=== PATIENT | female | born 1955 | race Caucasian/White ===

== ENCOUNTER 2022-02-03 18:18 | Emergency (ER) | payer MEDICARE ==
--- NOTE | 2022-02-03 18:49 | ERPHSYRPT ---
- History of Present Illness Time Seen by Provider: 02/03/22 18:46 Source: patient Exam Limitations: no limitations Patient Subjective Stated Complaint: pt here for a fall yesterday while stacking wood, co pain to right wrist and lower arm. denies any other injury Triage Nursing Assessment: pt alert, resp easy, face mask in place, skin w/d/p. has swelling to right wrist, limited range of motion, strong radial pulse Physician History: pt has persisting swelling and pain right dorsal wrist after falling holding log yesterday. No LOC, No dizziness, No Cp or SOBreath, just tripped. did not hit head or other extremities per pt. full ROM all other ext. some pain with ext right wrist and palpation. negative snuff box tenderness. NV intact. Chest clear and nontender. Ht reg - No Hx blood thinners. Abd soft and nontender. Spine nontender throughout with full ROM; Neruo all normal. Occurred: yesterday Method of Injury: direct blow, fell Quality: constant, sharpness, throbbing Severity of Pain-Max: moderate Severity of Pain-Current: moderate Extremities Pain Location: wrist: right Modifying Factors: Improves With: cold therapy, movement Associated Symptoms: none, No back pain, No chest pain, No dyspnea, No jaw pain, No neck pain, No short of breath Allergies/Adverse Reactions: No Known Drug Allergies Allergy (Unverified 02/03/22 18:44) Home Medications: Buspirone HCl 1 ea DAILY 02/03/22 [History] Hydrocodone/Acetaminophen [Hydrocodone-Acetamin 5-325 mg] 1 ea DAILY 02/03/22 [History] Losartan Potassium [Cozaar] 1 ea DAILY 02/03/22 [History] Meloxicam 1 ea DAILY 02/03/22 [History] Hx Influenza Vaccination/Date Given: No Hx Pneumococcal Vaccination/Date Given: No Immunizations Up to Date: Yes Travel Risk - International Travel Have you traveled outside of the country in past 3 weeks: No - Coronavirus Screening Are you exhibiting any of the following symptoms?: No Close contact with a COVID-19 positive Pt in past 14-21 Days: No - Vaccine Status Have you recieved a Covid-19 vaccination: Yes 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 - Review of Systems Constitutional: No Fever, No Chills Eyes: No Symptoms Ears, Nose, & Throat: No Symptoms Respiratory: No Cough, No Dyspnea Cardiac: No Chest Pain, No Edema, No Syncope Abdominal/Gastrointestinal: No Abdominal Pain, No Nausea, No Vomiting, No Diarrhea Genitourinary Symptoms: No Dysuria Musculoskeletal: Fall, Injury, Joint Pain, Joint Swelling, No Back Pain, No Neck Pain Skin: No Symptoms, No Rash, No Skin Lesions Neurological: No Symptoms, No Dizziness, No Focal Weakness, No Headache, No Sensory Changes, No Vertigo Psychological: No Symptoms Endocrine: No Symptoms Hematologic/Lymphatic: No Symptoms Immunological/Allergic: No Symptoms All Other Systems: Reviewed and Negative - Past Medical History Pertinent Past Medical History: Yes Cardiac History: Hypertension Respiratory History: COPD Musculoskeletal History: Arthritis Female Reproductive Disorders: Breast Cancer Other Medical History: hx of breast cancer - Past Surgical History Past Surgical History: Yes Other Surgical History: lypmh nodes removed, - Social History Smoking Status: Current every day smoker Exposure to second hand smoke: Yes Drug Use: none Patient Lives Alone: Yes - Nursing Vital Signs Nursing Vital Signs: Initial Vital Signs Temperature 97.2 F 02/03/22 18:36 Pulse Rate 80 02/03/22 18:36 Respiratory Rate 16 02/03/22 18:36 Blood Pressure 149/74 02/03/22 18:36 O2 Sat by Pulse Oximetry 95 02/03/22 18:36 Pain Scale Pain Intensity 4 - Physical Exam General Appearance: alert Eyes, Ears, Nose, Throat Exam: moist mucous membranes Neck Exam: non-tender, supple Cardiovascular/Respiratory Exam: chest non-tender, normal breath sounds, regular rate/rhythm, no respiratory distress Abdominal Exam: non-tender, No guarding Back Exam: normal inspection, No vertebral tenderness Shoulder Exam: normal inspection, non-tender, no evidence of injury, normal ROM Elbow/Forearm Exam: normal inspection, non-tender, no evidence of injury, normal ROM Wrist Exam: bone tenderness, limited ROM, pain, soft tissue tenderness, swelling Hand Exam: normal inspection, non-tender, no evidence of injury, normal ROM DTR - Upper Extremity Exam: bicep (R): 2+, bicep (L): 2+, tricep (R): 2+, tricep (L): 2+ Neuro/Tendon Exam: normal sensation, normal motor functions, normal tendon functions Mental Status Exam: alert, oriented x 3, cooperative Skin Exam: normal color, warm, dry SpO2 Interpretation: normal SpO2: 95 O2 Delivery: Room Air Procedures - Splinting Location of Splint: Right, Wrist Type of Splint: Velcro Splint Splint Applied By: ED Nurse Pre-Proc Neuro Vasc Exam: normal Post-Proc Neuro Vasc Exam: neurovascular intact, unchanged from pre-exam - Course Nursing assessment & vital signs reviewed: Yes - Radiology Exams Right Wrist X-ray Interpretation: Reviewed by me, Other (lucency right scahphoid nondisplaced. ) Ordered Tests: Active Orders 24 hr Category Date Time Status FOREARM Stat Exams 02/03/22 18:56 Completed - Progress Progress: improved, re-examined Counseled pt/family regarding: diagnosis, need for follow-up, rad results - Departure Departure Disposition: Home Clinical Impression: lucency right wrist scaphoid/occult Fx Condition: Good Critical Care Time: No Referrals: CLINTON VENTURA NP [Primary Care Provider] - Follow up/PCP as directed Instructions: Preventing Falls, Wrist Fracture (DC), Common Wrist Injuries (DC) Additional Instructions: see Ortho [facility] Saturday ( call [facility]) . use spline and return meantime if any numbness or other symptoms of concern. Use Ice and elevation. Final x-ray report Saturday from radiologist. Use tylenol or Alleve for pain.
[2022-02-03 20:11] VITALS: BP 117/66
--- NOTE | 2022-02-03 20:15 | XRAY ---
Indication: Pain following fall. Comparison: None 2 view right forearm demonstrate mild osteopenia and moderate/advanced 1st metacarpal multangular scaphoid degenerative changes. No other bony, articular, or soft tissue abnormalities.
[2022-02-03 21:09] VITALS: PULSE 74; O2SAT 94
== END 2022-02-03 21:09 | disposition home or self-care (01) ==
LOC: ED 18:18
DX: M25.531 Pain in right wrist (principal); W18.30XA Fall on same level, unspecified, initial encounter; I10 Essential (primary) hypertension; J44.9 Chronic obstructive pulmonary disease, unspecified; Z72.0 Tobacco use; Z79.891 Long term (current) use of opiate analgesic; Z79.899 Other long term (current) drug therapy
CPT/HCPCS: 73090; 99283; L3908

== ENCOUNTER 2022-05-24 10:28 | Day surgery (SDC) | payer MEDICARE ==
--- NOTE | 2022-05-23 12:43 | HP ---
DATE OF SURGERY: 05/24/2022 HISTORY OF PRESENT ILLNESS: The patient presents with undesired port. The patient states that the port has been in about eleven years. She had some right-sided breast cancer. She desires removal at this time. PAST MEDICAL HISTORY: Hypertension, chronic obstructive pulmonary disease. PAST SURGICAL HISTORY: Hysterectomy. Breast lumpectomy. ALLERGIES: NKDA. MEDICATIONS: Albuterol, losartan, fluticasone, Solu-Medrol, meloxicam. FAMILY HISTORY: Diabetes. SOCIAL HISTORY: None reported. REVIEW OF SYSTEMS: CONSTITUTIONAL: Denies fever or chills. CHEST: Denies shortness of breath. CVS: Denies chest pain. ABDOMEN: Denies abdominal pain. PHYSICAL EXAMINATION: GENERAL: No acute distress. CHEST: Nonlabored. No shortness of breath. CVS: Regular rate and rhythm. ABDOMEN: Soft. IMPRESSION: Undesired port. PLAN: Port removal with Dr. Eb Malone. As dictated by Ann Ivey NP.
[~2022-05-24 10:28] MED LIST: XYLOCAINE 1% HCL 20 ML MDV ONE
[2022-05-24] MEDS ORDERED: Lactated Ringers 1,000 ML IV ONE (11:12)
[2022-05-24] MEDS ORDERED: Lactated Ringers 1,000 ML IV SCH (11:30)
[2022-05-24] MEDS ORDERED: SUBLIMAZE 100 MCG/2 ML ONE (11:53)
[2022-05-24] MEDS ORDERED: Xylocaine-Mpf 2% 5 Ml Vial ONE (11:53)
[2022-05-24] MEDS ORDERED: DIPRIVAN 200 MG/20 ML IV ONE ×2 (11:53→12:28)
[2022-05-24] MEDS ORDERED: Versed 2 MG/2 ML Injection ONE (11:53)
[2022-05-24 13:38] VITALS: BP 137/79; PULSE 72
[2022-05-24 13:40] VITALS: O2SAT 97
--- NOTE | 2022-05-24 14:39 | OP ---
SURGERY DATE/TIME: 05/24/2022 1159 PREOPERATIVE DIAGNOSIS: Undesired Port-A-Cath. POSTOPERATIVE DIAGNOSIS: Undesired Port-A-Cath. PROCEDURE: Complete port removal. SURGEON: Eb Malone M.D. ANESTHESIA: MAC. COMPLICATIONS: None. CONDITION: Stable. INDICATION: The patient completed therapy requiring port removal. DESCRIPTION OF PROCEDURE: Taken to surgery. Routine prep and drape. Anesthetized with 1% lidocaine and MAC. Port and catheter pulled out. It pulled back to 14 but then was hung there for a while. A dense inflammatory reaction. The fat was lifted upright to the collar bone and the catheter right below the collar bone. At this time it did pull out and the whole catheter was removed. Hemostasis satisfactory. Closed with 4-0 Vicryl and Steri-Strips. The patient tolerated the procedure satisfactorily.
== END 2022-05-24 13:42 | disposition home or self-care (01) ==
LOC: SDC 10:28
PROVIDERS: ATTEND Surgery
DX: Z45.2 Encounter for adjustment and management of vascular access device (principal); Z85.3 Personal history of malignant neoplasm of breast
CPT/HCPCS: J2250; J2704; J3010